=== PATIENT | male | born 1985 | race Two or more races ===

== ENCOUNTER 2017-12-22 23:38 | Emergency (ER) | payer SELFPAY ==
[~2017-12-22] VITALS: Ht 170.2 cm; Wt 88.0 kg
[2017-12-23 02:43] VITALS: BP 140/77
== END 2017-12-23 04:23 | disposition left against medical advice (07) ==
LOC: ER 23:38
DX: M79.641 Pain in right hand (principal); F17.200 Nicotine dependence, unspecified, uncomplicated; Z87.828 Personal history of other (healed) physical injury and trauma; Z98.890 Other specified postprocedural states; W22.8XXA Striking against or struck by other objects, initial encounter; Y93.89 Activity, other specified; Y92.810 Car as the place of occurrence of the external cause; Y99.8 Other external cause status
CPT/HCPCS: 99281